=== PATIENT | male | born 1995 | race Caucasian/White ===

== ENCOUNTER → 2023-06-18 | Day surgery (SDC) | payer OTHER ==
[~2023-06-18] VITALS: Ht 172.7 cm; Wt 103.4 kg
[~2023-06-18] MED LIST: ACETAMINOPHEN 1000MG 100ML IV BAG As Ordered ONE; GLYCOPYRROLATE INJ 0.2 MG/ML 2 ML VIAL As Ordered ONE; HYDROMORPHONE HCL 0.5 MG/ 0.5 ML SYRINGE IV PRN; IBUP80TA PO; KETOROLAC 60MG 2ML VIAL As Ordered ONE; LIDOCAINE 1% SDV 30ML VIAL As Ordered ONE; LIDOCAINE 2% 100MG/5ML SDV (FOR ANES.) As Ordered ONE; LR 1,000 ML IV SCH; MIDAZOLAM INJ 2MG/2ML VIAL As Ordered ONE; ONDANSETRON 4MG 2ML VIAL As Ordered ONE; ONDANSETRON 4MG 2ML VIAL IV PRN; PHENYLephrine 500MCG 5ML (100MCG/ML) SYRINGE As Ordered ONE; ceFAZolin SOD 2 GM in IV 1 EA IV ONE; fentaNYL 100 MCG/2 ML INJECTION As Ordered ONE; fentaNYL 100 MCG/2 ML INJECTION IV PRN; oxyCODONE 5MG TAB PO PRN; propofoL 200 MG/20 ML VIAL As Ordered ONE
[2023-06-18 16:58] VITALS: BP 133/66; TEMP 97.8; O2SAT 99
== END | disposition home or self-care (01) ==
LOC: M SDC 11:26
PROVIDERS: ATTEND Student in an Organized Health Care Education/Training Program
DX: S52.511A Displaced fracture of right radial styloid process, initial encounter for closed fracture (principal); W19.XXXA Unspecified fall, initial encounter; D75.A Glucose-6-phosphate dehydrogenase (G6PD) deficiency without anemia; F17.290 Nicotine dependence, other tobacco product, uncomplicated; Y93.9 Activity, unspecified; Y92.9 Unspecified place or not applicable
CPT/HCPCS: 25607; 76000; C1713; J0131; J0665; J1100; J1885; J2250; J2371; J2405; J3010

== ENCOUNTER 2023-09-10 10:55 | Day surgery (SDC) | payer OTHER ==
[~2023-09-10] VITALS: Ht 172.7 cm; Wt 110.3 kg
[2023-09-10] MEDS: ceFAZolin SOD 2 GM in IV 1 EA IV ONE (06:00)
[~2023-09-10 10:55] MED LIST changes: -ACETAMINOPHEN 1000MG 100ML IV BAG As Ordered ONE; -GLYCOPYRROLATE INJ 0.2 MG/ML 2 ML VIAL As Ordered ONE; -HYDROMORPHONE HCL 0.5 MG/ 0.5 ML SYRINGE IV PRN; -LIDOCAINE 1% SDV 30ML VIAL As Ordered ONE; -LR 1,000 ML IV SCH; -ONDANSETRON 4MG 2ML VIAL IV PRN; -PHENYLephrine 500MCG 5ML (100MCG/ML) SYRINGE As Ordered ONE; -ceFAZolin SOD 2 GM in IV 1 EA IV ONE; -fentaNYL 100 MCG/2 ML INJECTION IV PRN; -oxyCODONE 5MG TAB PO PRN
[2023-09-10] MEDS: LR 1,000 ML IV SCH (11:39)
[2023-09-10] MEDS ORDERED: LIDOCAINE 1% SDV 30ML VIAL As Ordered ONE (11:48)
[2023-09-10] MEDS ORDERED: KETAMINE HCL 200MG/20ML VIAL As Ordered ONE (12:13)
[2023-09-10] MEDS ORDERED: GLYCOPYRROLATE INJ 0.2 MG/ML 2 ML VIAL As Ordered ONE (12:24)
[2023-09-10] MEDS ORDERED: ePHEDrine SULFATE 25 MG/5 ML(5MG/ML) SYRINGE As Ordered ONE (12:34)
[2023-09-10] MEDS ORDERED: PHENYLephrine 500MCG 5ML (100MCG/ML) SYRINGE As Ordered ONE (12:34)
[2023-09-10] MEDS ORDERED: LR 1,000 ML IV SCH (13:35)
[2023-09-10] MEDS ORDERED: METOCLOPRAMIDE INJ 10MG/2ML VIAL IV PRN (13:35)
[2023-09-10] MEDS ORDERED: ONDANSETRON 4MG 2ML VIAL IV PRN (13:35)
[2023-09-10] MEDS: oxyCODONE 5MG TAB PO PRN (13:47)
[2023-09-10] MEDS: MORPHINE 2 MG/ML 1ML VIAL IV PRN (13:48)
[2023-09-10 15:07] VITALS: BP 128/83; TEMP 98.5; O2SAT 97
== END 2023-09-10 15:29 | disposition home or self-care (01) ==
LOC: M SDC 10:55
PROVIDERS: ATTEND Podiatrist Foot & Ankle Surgery
DX: M21.612 Bunion of left foot (principal); D55.0 Anemia due to glucose-6-phosphate dehydrogenase [G6PD] deficiency
CPT/HCPCS: 28299; 76000; 97116; 97530; C1713; J0665; J0690; J1100; J2250; J2371; J2405; J3010